=== PATIENT | female | born 1940 | race Caucasian/White ===

== ENCOUNTER → 2018-08-09 | Outpatient (CLI) | payer MEDICARE, BC | LOC: M.RAD 10:50 | DX: Z12.31 Encounter for screening mammogram for malignant neoplasm of breast (principal); Z85.3 Personal history of malignant neoplasm of breast ==

== ENCOUNTER 2019-07-12 16:24 | Inpatient (IN) | payer MEDICARE, BC ==
[~2019-07-12] VITALS: Ht 144.8 cm; Wt 68.0 kg
[2019-07-12 16:40] VITALS: BP 198/97
[2019-07-12] MEDS ORDERED: CARVEDILOL25 MG PO (17:02)
[2019-07-12] MEDS ORDERED: LISINOPRIL2.5 MG PO (17:02)
[2019-07-12 17:06] LABS: INFLUENZA A ANTIGEN Positive (Negative); INFLUENZA B ANTIGEN Negative (Negative)
[2019-07-12 17:42] LABS: ABSOLUTE BASOPHILS 0.1 thou/uL (0.0-0.2); ABSOLUTE EOSINOPHILS 0.1 thou/uL (0.0-0.7); ABSOLUTE LYMPHOCYTES 1.5 thou/uL (0.8-5.3); ABSOLUTE MONOCYTES 1.1 thou/uL (0.0-1.2); ABSOLUTE NEUTROPHILS 4.1 thou/uL (1.6-8.1); BASOPHILS 0.7 %; EOSINOPHILS 0.9 %; HEMATOCRIT 40.9 % (37.0-47.0); HEMOGLOBIN 14.3 gm/dL (12.0-15.0); LYMPHOCYTES 21.9 %; MCH 31.8 pg (26.0-34.0); MCHC 34.9 g/dL (28.0-37.0); MONOCYTES 16.2 %; MPV 7.3 fl. (7.2-11.1); NUCLEATED RBCS 0 /100WBC; PLATELET COUNT* 198 thou/uL (150-400); POLYS 60.3 %; RBC 4.49 mil/uL (4.20-5.00); RDW-CV 12.8 % (10.5-14.5); WBC 6.8 thou/uL (4.0-11.0)
[2019-07-12 17:47] LABS: CALCIUM 8.8 mg/dL (8.5-10.1); POTASSIUM 4.3 mmol/L (3.5-5.1)
[2019-07-12 17:59] LABS: ALBUMIN 3.7 g/dL (3.4-5.0); TOTAL BILIRUBIN 0.7 mg/dL (<0.1-1.0); TOTAL PROTEIN 7.5 g/dL (6.4-8.2)
[2019-07-12 20:13] VITALS: BP 168/75
[2019-07-12 20:30] VITALS: BP 147/70
[2019-07-12 20:31] LABS: URINE BILIRUBIN NEGATIVE (Negative); URINE BLOOD 1+ (Negative); URINE CLARITY CLEAR; URINE COLOR YELLOW; URINE GLUCOSE-RANDOM NEGATIVE (Negative); URINE KETONES TRACE (Negative); URINE LEUKOCYTES-REFLEX NEGATIVE (Negative); URINE NITRITE-REFLEX NEGATIVE (Negative); URINE PROTEIN TRACE (Negative); URINE SPECIFIC GRAVITY 1.015 (1.005-1.030); URINE UROBILINOGEN 0.2 E.U./dl (0.2-1.0)
[2019-07-12 20:45] LABS: MUCUS None Seen strn/LPF (None Seen); SQUAMOUS >10 Many /LPF (0-3)
[2019-07-12 20:46] LABS: BACTERIA-REFLEX 1-9 Few /HPF (None Seen); CRYSTALS None Seen /LPF (None Seen); HYALINE CASTS 0-3 Few /LPF (None Seen); URINE RBC 0-2 Rare /HPF (0-2); URINE WBC-REFLEX 0-5 Rare /HPF (0-5)
--- NOTE | 2019-07-13 04:59 | NUR ---
PATIENT ARRIVED FROM ER VIA W/CHAIR AND ASSISTED TO BED; DTR AT BEDSIDE. PT DENIES PAIN/NAUSEA. PT WITH NON-PRODUCTIVE COUGH. PT UP WITH ASSIST TO BATHROOM; WEARS PULL UP. PT WITH FLUIDS INFUSING PER DR ORDER. PT ORIENTED TO ROOM/POLICIES AND VERBALIZES UNDERSTANDING. FREQUENTLY USED ITEMS AND CALL LIGHT WITHIN REACH. SIDERAILS UPX3 AND BED ALARM ON. WILL CONTINUE TO MONITOR.
[2019-07-13 08:20] VITALS: BP 159/69
--- NOTE | 2019-07-13 10:28 | NUR ---
DR. ASCENCIO'S OFFICE NOTIFIED OF PATIENT'S ADMISSION PER PATIENT REQUEST. VOICEMAIL LEFT WITH RELATIONSHIP CONSULTANT.
[2019-07-13] MEDS ORDERED: ZPAK PO (10:44)
[2019-07-13] MEDS ORDERED: TAMIFLU30 MG PO (10:44)
[2019-07-13] MEDS ORDERED: ASA81BEC PO (10:45)
[2019-07-13] MEDS ORDERED: LIPITOR 20 MG T20 M1 PO (10:50)
[2019-07-13 11:27] LABS: CHOLESTEROL 176 mg/dL (<200); HDL CHOLESTEROL 34 mg/dL (>40); LDL CHOLESTEROL 128 mg/dL (<100); SERUM ASSESSMENT Clear; TC:HDL 5.2 Ratio (Not establshd); TRIGLYCERIDE 74 mg/dL (<150); VLDL 15 mg/dL (<40)
--- NOTE | 2019-07-13 11:37 | EKG ---
[place] [address] ELECTROCARDIOGRAM REPORT Name: JULIANNA RUBIOGARRET REEDER Room: [address] ADM IN M.R.#: [id number] Admission: 07/12/19 Attend Phys: Erma Porras Discharge: Date of : 36 Date of Service: 07/12/19 1728 Report #: [id number] THIS REPORT FOR: //name// [facility] ED Test Date: 2019-07-12 Test Time: 17:28:30 Pat Name: CARROLL RUBIO Department: Room: [facility] Gender: F Elevator Operator Service: : 1940 Requested By: Lolita Ariza Order Number: [id number] MD: Sundar Angeles Measurements Intervals [place] Rate: 86 P: -10 VT: 163 QRS: -12 QRSD: 86 T: -5 QT: 361 QTc: 432 Interpretive Statements Sinus rhythm Inferior infarct, old possible No previous ECG available for comparison Electronically Signed On 07-13-2019 11:36:[address] REPORTER by Sundar Angeles [email or web address] <ELECTRONICALLY SIGNED> By: Sundar Angeles MD, [facility] 07/13/19 1136 1728 1728 Sundar Angeles MD, [facility] /EPI
[2019-07-13 14:35] VITALS: BP 159/69
--- NOTE | 2019-07-13 14:37 | NUR ---
SW met with pt and pt dtr and pt son to complete assessment, introduce self, and SW role. Pt lives at home alone with family support. SW discussed HH services to follow and pt and pt family in agreement with plan. Pt/family preference for HH agency is [facility]; SW arranged with [facility] by faxing referral info and dc summary/orders/med list. Pt to dc home today most likely but awaiting final clearance and pt/family decision. [facility] ph [phone]
[2019-07-13 15:59] VITALS: BP 168/65
--- NOTE | 2019-07-13 19:01 | NUR ---
CONFIRMED WITH DR. BERRY THAT DISCHARGE IS CANCELLED FOR TODAY. PATIENT AWAKE IN BED WITH FAMILY AT BEDSIDE. PATIENT AMBULATED WITH WALKER, GAIT BELT, AND ASSISTANCE THROUGHOUT SHIFT. ALL SAFETY MEASURES MAINTAINED. PATIENT DENIES FURTHER NEEDS AT THIS TIME.
[2019-07-13 20:00] VITALS: BP 146/74
--- NOTE | 2019-07-14 05:21 | NUR ---
PT ALERT AND ORIENTED. VSS ON RA. MEDS GIVEN PER EMAR. PT UP TO BATHROOM THIS SHIFT VIA WALKER AND GAIT BELT. DROPLET ISOLATION PRECAUTION IN PLACE. FALL PRECAUTION IN PLACE. ANTICIPATED DC TODAY. CALL LIGHT WITHIN REACH. HOURLY ROUNDINGS MADE. WILL CONTINUE TO MONITOR.
[2019-07-14 08:00] VITALS: BP 169/75
[2019-07-14 11:15] VITALS: BP 159/69
--- NOTE | 2019-07-14 12:10 | NUR ---
PATIENT UP WITH SBA AND USE OF WALKER. IV DC'D FOR DISCHARGE. NO COMPLAINTS OF PAIN. NEURO OK TO DISCHARGE HOME. PATIENT DISCHARGED TO HOME WITH [facility]. VERBALIZES UNDERSTANDING OF PAPEWORK AND SCRIPTS. PATIENT TAKEN OUT VIA WHEELCHAIR WITH ALL BELONGINGS AND DAUGHTER.
== END 2019-07-14 12:12 | disposition home health service (06) | DRG 69 ==
LOC: M.ERS 16:24 → M.TBA-ER 18:18 → M.3W 18:18
PROVIDERS: Internal Medicine; Nurse Practitioner Family; ADMIT Internal Medicine
DX: G45.9 Transient cerebral ischemic attack, unspecified (principal); J11.1 Influenza due to unidentified influenza virus with other respiratory manifestations; K58.9 Irritable bowel syndrome, unspecified; I10 Essential (primary) hypertension; Z86.73 Personal history of transient ischemic attack (TIA), and cerebral infarction without residual deficits; Z85.3 Personal history of malignant neoplasm of breast; Z79.899 Other long term (current) drug therapy; Z90.10 Acquired absence of unspecified breast and nipple